=== PATIENT | male | born 1980 | race Caucasian/White ===

== ENCOUNTER 2018-05-11 20:17 | Inpatient (IN) | payer MEDICAID ==
[~2018-05-11] VITALS: Ht 185.4 cm; Wt 102.3 kg
[2018-05-11] MEDS ORDERED: ZOCOR20 MG PO (20:22)
[2018-05-11] MEDS ORDERED: MOBIC7.5 MG (20:22)
[2018-05-11] MEDS ORDERED: DEPAKOTE250 MG PO (20:23)
[2018-05-11] MEDS ORDERED: ZESTRIL40 MG (20:23)
[2018-05-11] MEDS ORDERED: ACETAMINOPHEN325 MG PO (20:23)
[2018-05-11] MEDS ORDERED: CHLORTHALIDONE25 MG PO (20:23)
[2018-05-11 20:56] LABS: BASOPHILS 0.5 % (0-2); EOSINOPHILS 0.5 % (0-7); HEMOGLOBIN 14.8 g/dL (13.5-17.5); IMMATURE GRANULOCYTES 0.4 % (0-5); LYMPHOCYTES 32.9 % (15-50); MCH 28.3 pg (26.0-34.0); MCHC 34.4 g/dL (31.0-37.0); MCV 82.2 fL (80.0-100.0); NEUTROPHILS 59.7 % (40-80); PLATELET COUNT 208 10x3/uL (130-400); RBC 5.23 10x6/uL (4.20-6.10); RDW 12.4 % (11.5-14.5); WBC 7.3 10x3/uL (4.8-10.8)
[2018-05-11 21:36] LABS: ALBUMIN 4.2 g/dL (3.4-5.0); ALKALINE PHOSPHATASE 33 U/L (46-116); ALT (SGPT) 24 U/L (10-68); BILIRUBIN - TOTAL 0.55 mg/dL (0.2-1.3); CALC OSMOLALITY 279 mosm/kg (275-300); CALCIUM 9.2 mg/dL (8.5-10.1); CARBON DIOXIDE 20.2 mmol/L (21.0-32.0); CHLORIDE - SERUM 101 mmol/L (98-107); CREATININE - SERUM 0.7 mg/dL (0.6-1.3); GLUCOSE 172 mg/dL (74-106); POTASSIUM - SERUM 3.3 mmol/L (3.5-5.1); PROTEIN - SERUM 7.6 g/dL (6.4-8.2); SODIUM 138 mmol/L (136-145); UREA NITROGEN 13 mg/dL (7-18); eGFR NON AFRICAN AMERICAN > 90 mL/min (90-120)
[2018-05-11 21:53] LABS: CKMB 1.3 U/L (0.0-3.6); CREATINE KINASE 97 UL (21-232); MAGNESIUM - SERUM 2.1 mg/dL (1.8-2.4); TROPONIN-I < 0.017 ng/mL (0.000-0.060)
[2018-05-11 21:55] LABS: ACETAMINOPHEN 282.4 ug/mL (10.0-30.0)
[2018-05-11 21:58] LABS: VALPROIC ACID (DEPAKOTE) < 50.0 ug/mL (50.0-100.0)
[2018-05-11 23:44] LABS: UDS - AMPHET NEGATIVE QUAL (NEGATIVE); UDS - BARB NEGATIVE QUAL (NEGATIVE); UDS - BENZO NEGATIVE QUAL (NEGATIVE); UDS - COCAINE NEGATIVE QUAL (NEGATIVE); UDS - OPIATE NEGATIVE QUAL (NEGATIVE); UDS - PCP NEGATIVE QUAL (NEGATIVE); UDS - THC NEGATIVE QUAL (NEGATIVE)
[2018-05-11 23:47] LABS: APPEARANCE CLEAR (CLEAR); BILIRUBIN NEGATIVE (NEGATIVE); COLOR YELLOW (YELLOW); GLUCOSE NEGATIVE (NEGATIVE); KETONE SMALL mg/dL (NEGATIVE); NITRITE NEGATIVE (NEGATIVE); PROTEIN 1+ mg/dL (NEGATIVE); UROBILINOGEN NORMAL (NORMAL)
[2018-05-11 23:48] LABS: BACTERIA FEW /hpf (NONE SEEN); EPITHELIAL CELLS 0-5 /hpf (0-5); RED CELLS - URINE 0-5 /hpf (0-5); WHITE CELLS - URINE 0-5 /hpf (0-5)
[2018-05-12] VITALS (27 sets, daily range): BP systolic 15–190; BP diastolic 69–110; Ht 185.4 cm; Wt 102.3 kg
[2018-05-12 04:47] LABS: BASOPHILS 0.2 % (0-2); EOSINOPHILS 0 % (0-7); HEMATOCRIT 43.8 % (42.0-54.0); HEMOGLOBIN 15.1 g/dL (13.5-17.5); IMMATURE GRANULOCYTES 0.4 % (0-5); LYMPHOCYTES 12.2 % (15-50); MCH 27.9 pg (26.0-34.0); MCHC 34.5 g/dL (31.0-37.0); MCV 80.8 fL (80.0-100.0); MEAN PLATELET VOLUME 11.1 fL (7.4-10.4); NEUTROPHILS 83.2 % (40-80); PLATELET COUNT 231 10x3/uL (130-400); RBC 5.42 10x6/uL (4.20-6.10); RDW 12.4 % (11.5-14.5)
[2018-05-12 04:54] LABS: WBC 10.4 10x3/uL (4.8-10.8)
[2018-05-12 04:56] LABS: INR 1.07 (0.85-1.17); PROTIME 13.4 SECONDS (11.6-15.0)
[2018-05-12 04:58] LABS: ALKALINE PHOSPHATASE 30 U/L (46-116); ALT (SGPT) 26 U/L (10-68); BILIRUBIN - TOTAL 0.61 mg/dL (0.2-1.3); CALC OSMOLALITY 275 mosm/kg (275-300); CALCIUM 8.9 mg/dL (8.5-10.1); CARBON DIOXIDE 23.1 mmol/L (21.0-32.0); CHLORIDE - SERUM 98 mmol/L (98-107); CREATININE - SERUM 0.6 mg/dL (0.6-1.3); GLUCOSE 139 mg/dL (74-106); POTASSIUM - SERUM 3.2 mmol/L (3.5-5.1); PROTEIN - SERUM 7.9 g/dL (6.4-8.2); SODIUM 137 mmol/L (136-145); UREA NITROGEN 13 mg/dL (7-18); eGFR NON AFRICAN AMERICAN > 90 mL/min (90-120)
--- NOTE | 2018-05-12 07:30 | NUR ---
AWAKE AND ALERT SKIN WARM AND DRY. NG TUBE INTACT CLAMPED. IV RIGH FOREARM INFUSING WITH ACETATDONE 10,000G IN 1000CC D5W AT 65 ML HOUR WITH NS AT 125 ML HOUR. IV STARTED IN LEFT WRIST TO INFUSE KCL RIDER. X 1 STICK 22 G INFUSING NS AT KVO WITH KCL RIDER. PHAN CATH PATENT DRAINING GAVINO URINE. MONITOR SR. NO DISTRESS NOTED. TALKATIVE. SCD APPLIED TO LOWER LEGS.
--- NOTE | 2018-05-12 09:30 | NUR ---
KCL RIDER TURNED TO 50 ML HOUR DUE BURNING AT SITE. NO DISTRESS. IV SITES WITHOUT REDNESS OR SWELLING.
--- NOTE | 2018-05-12 10:54 | NUR ---
IV SITE NOT BURNING MUCH BETTER PER PATIENT.
--- NOTE | 2018-05-12 12:30 | NUR ---
dr. guevara here orders to receive. NG TUBE DC'D AND CLEAR LIQUIDS ICE WATER GIVEN TOLERATED WELL. NO DISTRESS REPOSITIONED ON RIGHT SIDE. DENIES PAIN
--- NOTE | 2018-05-12 12:42 | MORECARE ---
CASE MANAGEMENT DISCHARGE SUMMARY PATIENT: HENRY EDMONDS UNIT: [id number] ADM DATE: 05/11/18 AGE: 38 : 78 SEX: M ROOM/BED: D.2312 AUTHOR: ASHA STEPHENSON PHYSICIAN: REFERRING PHYSICIAN: BETH CALVERT MD DATE OF SERVICE: 05/12/18 Discharge Plan Patient Name: HENRY EDMONDS Facility: [facility]:[place] : 1980 Planned Disposition: Court\Law Enforcement Anticipated Discharge Date: Discharge Date: Expected LOS: Initial Reviewer: [id number] Initial Review Date: 05/11/2018 Generated: 05/12/18 1:42 pm DCP- Discharge Planning Updated by RADHA: Stephany Johnston on 05/12/18 11:[address] Patient Name: HENRY EDMONDS Admission Status: ER Accout number: [id number] Admission Date: 05-11-2018 : 1980 Admission Diagnosis: Attending: BETH CALVERT Current LOS: 1 Anticipated DC Date: Planned Disposition: Court\Law Enforcement Primary Insurance: [place] [employer] Discharge Planning Comments: Patient will return to [place] [facility] upon discharge. Turbine Attendant: Stephany Johnston Patient Name: HENRY EDMONDS Page [phone] at 1242 All edits/amendments must be made on the electronic document DICTATION DATE: 05/12/18 1242 STAFF NURSE: AUSTEN 05/12/18 1242 RPT#: [id number] DC DATE: STATUS: ADM IN [facility] [address] [place] [address] END OF REPORT
--- NOTE | 2018-05-12 14:31 | NUR ---
NAPPING EYES CLOSED, RESP DEEP AND REGULAR. NO DISTRESS
--- NOTE | 2018-05-12 15:45 | NUR ---
PATIENT WASHED HIMSELF OFF. CLEAN APPLIED TO BED. ORAL CARE. TOLERATED WELL. NO DISTRESS. TALKED WITH POISON CONTROLL TYLENOL LEVEL ORDER 8 PM
--- NOTE | 2018-05-12 17:30 | NUR ---
CLEAR LIQUID DIET SERVED TAKEN WELL.
--- NOTE | 2018-05-12 19:30 | NUR ---
REPORT REC'D AND CARE ASSUMED, REC'D PT AWAKE, ALERT, ORIENTED X 4, APERTURE MASK ETCHER AT BS, PT ON ROOM AIR, LEFT FOREARM PIV WITH NS @ 125CC/HR AND RIGHT FOREARM PIV WITH ACETADOTE @ 65.6CC/HR, PT MAEE, DENIES NAUSEA, REPORTS BEING SORE FROM YESTERDAY, PHAN PATENT DRAINING CLEAR YELLOW URINE, BILAT SCDS INTACT, PPP, SR UP X 2, CALL LIGHT IN REACH.
--- NOTE | 2018-05-12 20:00 | NUR ---
ICE WATER PROVIDED, PT WATCHING TV, DENIES NEEDS.
--- NOTE | 2018-05-12 20:30 | NUR ---
LAB AT FOR TIMED LAB DRAW
--- NOTE | 2018-05-12 21:00 | NUR ---
SPOKE WITH MALKA FROM POISON CONTROL, KATI COMPLETED, ACETIMINOPHEN LEVEL O AT THIS TIME, WILL CONT TO MONITOR FOR CHANGES.
--- NOTE | 2018-05-12 21:30 | NUR ---
ACETADOTE DISCONNECTED AND NS @ 125 PLACED TO RIGHT FOREARM, LEFT PIV SALINE LOCKED, BP STABLE, PT DENIES NEEDS.
--- NOTE | 2018-05-12 23:00 | NUR ---
REASSESSMENT COMPLETED, PT DENIES PAIN OR OTHER NEEDS, VSS, PHAN EMPTIED OF 2200CC CLEAR YELLOW URINE, GUARD REMAINS AT BS.
--- NOTE | 2018-05-12 23:45 | NUR ---
ROUTINE PROTONIX GIVEN ORDERED, PT RESTING QUIETLY, ICE WATER PROVIDED, WILL MONITOR CLOSELY FOR CHANGES.
[2018-05-13] VITALS (24 sets, daily range): BP systolic 105–143; BP diastolic 60–94
--- NOTE | 2018-05-13 02:00 | NUR ---
PT RESTING IN BED EYES CLOSED, RESP EVEN AND UNLABORED, VSS, WILL CONT TO MONITOR FOR CHANGES.
--- NOTE | 2018-05-13 03:00 | NUR ---
REASSESSMENT COMPLETED, NO CHANGES FROM PREVIOUS ASSESSMENT, PT DENIES PAIN OR NEEDS, SR UP X 2, CALL LIGHT IN REACH.
[2018-05-13 04:00] LABS: BASOPHILS 0.5 % (0-2); EOSINOPHILS 0.6 % (0-7); HEMOGLOBIN 13.1 g/dL (13.5-17.5); IMMATURE GRANULOCYTES 0.1 % (0-5); LYMPHOCYTES 35.4 % (15-50); MCH 27.6 pg (26.0-34.0); MCHC 33.6 g/dL (31.0-37.0); MCV 82.1 fL (80.0-100.0); MEAN PLATELET VOLUME 10.3 fL (7.4-10.4); MONOCYTES 9.6 % (2-11); NEUTROPHILS 53.8 % (40-80); PLATELET COUNT 185 10x3/uL (130-400); RBC 4.75 10x6/uL (4.20-6.10); RDW 12.8 % (11.5-14.5); WBC 8.1 10x3/uL (4.8-10.8)
--- NOTE | 2018-05-13 04:00 | NUR ---
LAB AT FOR AM LAB DRAW
[2018-05-13 04:06] LABS: INR 1.14 (0.85-1.17); PROTIME 14.1 SECONDS (11.6-15.0)
[2018-05-13 04:07] LABS: CALCIUM 8.1 mg/dL (8.5-10.1); CARBON DIOXIDE 23.6 mmol/L (21.0-32.0); CHLORIDE - SERUM 107 mmol/L (98-107); CREATININE - SERUM 0.6 mg/dL (0.6-1.3); POTASSIUM - SERUM 3.2 mmol/L (3.5-5.1); SODIUM 141 mmol/L (136-145); eGFR NON AFRICAN AMERICAN > 90 mL/min (90-120)
[2018-05-13 04:10] LABS: CALC OSMOLALITY 276 mosm/kg (275-300); GLUCOSE 85 mg/dL (74-106); UREA NITROGEN 4 mg/dL (7-18)
--- NOTE | 2018-05-13 04:30 | NUR ---
SERUM K 3.2, 40MEQ POTASSIUM POWDER MIXED IN ORANGE JUICE AND GIVEN TO PATIENT PER ELECTROLYTE PROTOCOL, PT DENIES NEEDS.
--- NOTE | 2018-05-13 06:00 | NUR ---
PT RESTING EYES CLOSED RESP EVEN AND UNLABORED, VSS, GUARD REMAINS AT BEDSIDE, SR UP X 2, BED IN LOW POSITION, CALL LIGHT IN REACH.
[2018-05-13 11:03] LABS: ALBUMIN 3.3 g/dL (3.4-5.0); ALKALINE PHOSPHATASE 25 U/L (46-116); ALT (SGPT) 20 U/L (10-68); BILIRUBIN - TOTAL 0.56 mg/dL (0.2-1.3); CALC OSMOLALITY 285 mosm/kg (275-300); CALCIUM 8.2 mg/dL (8.5-10.1); CHLORIDE - SERUM 110 mmol/L (98-107); CREATININE - SERUM 0.7 mg/dL (0.6-1.3); GLUCOSE 97 mg/dL (74-106); POTASSIUM - SERUM 3.2 mmol/L (3.5-5.1); PROTEIN - SERUM 6.5 g/dL (6.4-8.2); SODIUM 145 mmol/L (136-145); UREA NITROGEN 5 mg/dL (7-18); eGFR NON AFRICAN AMERICAN > 90 mL/min (90-120)
--- NOTE | 2018-05-13 19:20 | NUR ---
REC'D PT RESTING IN BED WATCHING TV, PT IS AWAKE, ALERT, AND ORIENTED X 4, DENIES PAIN, LEFT FOREARM PIV SALINE LOCKED, RIGHT FOREARM PIV WITH NS @ 125CC/HR, PHAN PATENT DRAINING CLEAR YELLOW URINE, BILAT SCDS INTACT AND ON, PPP, [facility], BED IN LOW POSITION, CALL LIGHT IN REACH.
--- NOTE | 2018-05-13 20:00 | NUR ---
ICE WATER PROVIDED ON REQUEST, BP STABLE, ASSISTED TO REPOSITION FOR COMFORT.
--- NOTE | 2018-05-13 21:30 | NUR ---
PT ASSISTED UP TO BSC, CALL LIGHT IN REACH.
--- NOTE | 2018-05-13 22:50 | NUR ---
PT ASSISTED BACK TO BED, REPORTS ONLY PASSING GAS, DENIES FURTHER NEEDS.
--- NOTE | 2018-05-13 23:45 | NUR ---
REASSESSMENT COMPLETED, PT WATCHING TV, DENIES PAIN OR NEEDS, NS @ 125CC/HR CONTINUES, SCDS REMOVED FOR BREAK, WILL MONITOR FOR CHANGES.
[2018-05-14] VITALS (13 sets, daily range): BP systolic 110–149; BP diastolic 70–87
--- NOTE | 2018-05-14 01:30 | NUR ---
PT REMAINS AWAKE, ICE WATER AND CRANBERRY JUICE PROVIDED, PT REPORTS SLIGHT PAIN IN CHEST WHEN TAKING A DEEP BREATH, O2 SAT 97%, SR UP X 2, CALL LIGHT IN REACH.
--- NOTE | 2018-05-14 03:45 | NUR ---
LAB AT FOR AM LAB DRAW
[2018-05-14 04:51] LABS: INR 1.03 (0.85-1.17)
[2018-05-14 05:05] LABS: ALBUMIN 3.3 g/dL (3.4-5.0); ALKALINE PHOSPHATASE 32 U/L (46-116); ALT (SGPT) 18 U/L (10-68); BILIRUBIN - TOTAL 0.36 mg/dL (0.2-1.3); CALC OSMOLALITY 281 mosm/kg (275-300); CALCIUM 8.2 mg/dL (8.5-10.1); CARBON DIOXIDE 23.5 mmol/L (21.0-32.0); CHLORIDE - SERUM 108 mmol/L (98-107); CREATININE - SERUM 0.6 mg/dL (0.6-1.3); GLUCOSE 92 mg/dL (74-106); PROTEIN - SERUM 6.5 g/dL (6.4-8.2); SODIUM 143 mmol/L (136-145); UREA NITROGEN 5 mg/dL (7-18); eGFR NON AFRICAN AMERICAN > 90 mL/min (90-120)
[2018-05-14 05:16] LABS: POTASSIUM - SERUM 3.1 mmol/L (3.5-5.1)
--- NOTE | 2018-05-14 06:00 | NUR ---
SERUM POTASSIUM 3.1, 40 MEQ PO POTASSIUM GIVEN, PT DENIES NEEDS.
--- NOTE | 2018-05-14 06:15 | NUR ---
PT ASSISTED UP TO BSC, CALL LIGHT IN REACH.
--- NOTE | 2018-05-14 06:35 | NUR ---
NO RESULTS NOTED, PT REPORTS FLATULENCE ONLY, ASSISTED BACK TO BED, PT REPOSITIONS SELF INDEPENDENTLY, BED IN LOW POSITION, CALL LIGHT IN REACH, VSS.
[2018-05-14 07:44] LABS: BASOPHILS 0.5 % (0-2); EOSINOPHILS 2.2 % (0-7); HEMATOCRIT 38.1 % (42.0-54.0); HEMOGLOBIN 12.8 g/dL (13.5-17.5); IMMATURE GRANULOCYTES 0.4 % (0-5); LYMPHOCYTES 37.3 % (15-50); MCH 27.7 pg (26.0-34.0); MCHC 33.6 g/dL (31.0-37.0); MCV 82.5 fL (80.0-100.0); MEAN PLATELET VOLUME 11.2 fL (7.4-10.4); MONOCYTES 8.5 % (2-11); NEUTROPHILS 51.1 % (40-80); PLATELET COUNT 195 10x3/uL (130-400); RBC 4.62 10x6/uL (4.20-6.10); RDW 12.9 % (11.5-14.5); WBC 8.2 10x3/uL (4.8-10.8)
--- NOTE | 2018-05-14 08:35 | NUR ---
UP IN BED AWAKE AT THIS TIME. NO ACUTE DISTRESS NOTED. VISITING WITH GUARD IN ROOM. PT ALERT AND ORIENTED. WILL CONTINUE PLAN OF CARE.
--- NOTE | 2018-05-14 10:59 | NUR ---
PHAN DC AT THIS TIME PER PHYSICIAN ORDERS. CATHETER TIP INTACT. NOTED 2000ML TO PHAN BEFORE DC.
--- NOTE | 2018-05-14 12:56 | NUR ---
575ML VOID TO URINAL NOTED AR THIS TIME.
--- NOTE | 2018-05-14 14:30 | NUR ---
ORDERS RECIEVED FOR PT TO DISCHARGE BACK TO [facility]. DISCHARGE PAPERWORK REVIEWED WITH PT AND SIGNED. NO ACUTE DISTRESS NOTED. WILL CONTINUE PLAN OF CARE.
--- NOTE | 2018-05-14 14:34 | NUR ---
B/L TIMOTHY'S DC'D AT THIS TIME, PT TOLERATED WELL
--- NOTE | 2018-05-14 16:58 | NUR ---
UP IN BED AWAKE AT THIS TIME. NO ACUTE DISTRESS NOTED. STILL WAITING ON RIDE TO BE DISCHARGED BACK TO [facility]. WILL CONTINUE PLAN OF CARE.
--- NOTE | 2018-05-14 17:36 | NUR ---
DISCHARGED BACK TO [facility] AT THIS TIME. NO ACUTE DISTRESS NOTED. DISCHARGED WITH ALL PERSONAL ITEMS WITH GUARD WITH ALL DISCHARGE PAPERWORK. NO FURTHER ACTIONS.
--- NOTE | 2018-05-16 16:30 | MORECARE ---
CASE MANAGEMENT DISCHARGE SUMMARY PATIENT: HENRY EDMONDS UNIT: [id number] ADM DATE: 05/11/18 AGE: 38 : 78 SEX: M ROOM/BED: D.2312 AUTHOR: ASHA STEPHENSON PHYSICIAN: REFERRING PHYSICIAN: BETH CALVERT MD DATE OF SERVICE: 05/16/18 Discharge Plan Patient Name: HENRY EDMONDS Facility: [facility]:[place] : 1980 Planned Disposition: Court\Law Enforcement Anticipated Discharge Date: Discharge Date: 05/14/2018 Expected LOS: Initial Reviewer: [email or web address] Initial Review Date: 05/11/2018 Generated: 05/16/18 5:30 pm DCP- Discharge Planning Updated by [email or web address]: Stephany Johnston on 05/12/18 11:[address] Patient Name: HENRY EDMONDS Admission Status: ER Accout number: [id number] Admission Date: 05-11-2018 : 1980 Admission Diagnosis: Attending: BETH CALVERT Current LOS: 1 Anticipated DC Date: Planned Disposition: Court\Law Enforcement Primary Insurance: [place] [employer] Discharge Planning Comments: Patient will return to [place] [facility] upon discharge. Adoption Specialist: Stephany Johnston Last DP export: 05/12/18 11:42 a Patient Name: HENRY EDMONDS Page [phone] at 1630 All edits/amendments must be made on the electronic document DICTATION DATE: 05/16/18 1630 GLOBAL CTO: AUSTEN 05/16/18 1630 RPT#: [id number] DC DATE:05/14/18 STATUS: DIS IN [facility] [address] [place] [address] END OF REPORT
== END 2018-05-14 17:37 | DRG 918 ==
LOC: D.ER 20:17 → D.EDHOLD 21:56 → D.ICU 21:56
PROVIDERS: Family Medicine; ADMIT Internal Medicine Nephrology
DX: T39.1X2A Poisoning by 4-Aminophenol derivatives, intentional self-harm, initial encounter (principal); R45.851 Suicidal ideations; E87.6 Hypokalemia; R73.9 Hyperglycemia, unspecified